=== PATIENT | female | born 1985 | race Caucasian/White ===

== ENCOUNTER → 2017-06-27 06:45 | Outpatient (CLI) | payer BC, SELFPAY ==
[2017-06-27 08:13] LABS: Absolute Neutrophil Count 5.8 X10^3/uL (2.0-7.7); Eosinophil# 0.08 X10^3/uL; Eosinophils% 1.1 % (0-5); Hematocrit 35.8 % (37-47); Hemoglobin 11.7 g/dl (12.0-15.0); Lymphocyte % 13.6 % (19-41); Mean Corp Hgb Conc 32.7 g/gl (32-36); Mean Corpuscular Hgb 31.3 pg (27.0-32.0); Mean Corpuscular Volume 95.7 fL (81-99); Mean Platelet Vol. 9.2 fl (6.2-12.0); Monocyte# 0.38 X10^3/uL; Monocyte% 5.2 % (0-10); Neutrophil # 5.84 X10^3/uL (2.7-7.7); Neutrophil % 79.7 % (47-70); Platelet Count 150 K/mm3 (150-450); RBC Distribution Width CV 14.5 % (11.6-14.6); Red Blood Count 3.74 M/mm3 (4.2-5.4); White Blood Count 7.3 K/mm3 (4.4-11.0)
[2017-06-27 08:20] LABS: POSITIVE COUNT NO; POSITIVE DIFFERENTIAL NO; POSITIVE MORPHOLOGY NO
[2017-06-27 08:39] LABS: Glucose Challenge Gest 1H 50g 169 mg/dL (70-140)
== END ==
PROVIDERS: Family Provider Family Medicine; PCP Family Medicine; Visit Provider Obstetrics & Gynecology
DX: Z34.82 Encounter for supervision of other normal pregnancy, second trimester (principal)
CPT/HCPCS: 36415; 82950; 85025

== ENCOUNTER → 2017-06-30 06:49 | Outpatient (CLI) | payer BC, SELFPAY ==
[2017-06-30 07:11] LABS: Bedside Glucose 91 mg/dL (70-110)
[2017-06-30 09:13] LABS: Glucose GTT-Gestation. Fasting 81 mg/dL (<105)
[2017-06-30 09:59] LABS: Glucose GTT-Gestational 1 Hr 153 mg/dL (<190)
[2017-06-30 10:00] LABS: Glucose GTT-Gestational 2 Hr 129 mg/dL (<165)
[2017-06-30 11:07] LABS: Glucose GTT-Gestational 3 Hr 88 L (<145)
== END ==
PROVIDERS: Family Provider Family Medicine; PCP Family Medicine; Visit Provider Obstetrics & Gynecology
DX: O99.810 Abnormal glucose complicating pregnancy (principal); Z3A.00 Weeks of gestation of pregnancy not specified
CPT/HCPCS: 82951; 82952; 82962

== ENCOUNTER → 2017-07-20 08:49 | Outpatient (CLI) | payer BC, SELFPAY ==
[2017-07-21 07:08] LABS: Rapid Plasmin Reagin (RPR) NONREACTIVE (NONREACTIVE)
[2017-07-21 15:02] LABS: HSV 2 IgG < 0.91 index (0.00-0.90); Hep C Antibodies <0.1 s/co ratio (0.0-0.9)
== END ==
PROVIDERS: Family Provider Family Medicine; PCP Family Medicine; Visit Provider Obstetrics & Gynecology
DX: Z34.90 Encounter for supervision of normal pregnancy, unspecified, unspecified trimester (principal)
CPT/HCPCS: 36415; 86592; 86695; 86696; 86803

== ENCOUNTER → 2017-08-24 17:55 | Outpatient (CLI) | payer BC, SELFPAY | PROVIDERS: Visit Provider Obstetrics & Gynecology | DX: L73.9 Follicular disorder, unspecified (principal) | CPT/HCPCS: 87070; 87075; 87077; 87186; 87205 ==

== ENCOUNTER → 2017-08-30 15:23 | Outpatient (CLI) | payer BC, SELFPAY ==
[2017-08-30 16:54] LABS: Group B Strep DNA By PCR Negative (Negative); Internal Control PASS; Probe Check PASS; Specimen Processing Control PASS
== END ==
PROVIDERS: Visit Provider Obstetrics & Gynecology
DX: Z34.82 Encounter for supervision of other normal pregnancy, second trimester (principal)
CPT/HCPCS: 87081; 87653

== ENCOUNTER → 2017-09-07 09:12 | Outpatient (CLI) | payer BC, SELFPAY ==
--- NOTE | 2017-09-07 09:16 | US_ITS ---
STUDY: SECOND AND THIRD TRIMESTER OBSTETRICAL ULTRASOUND - LIMITED REASON FOR EXAM: Female, 32 years old. Routine survey. LMP: December 21, 2016. PRIOR ULTRASOUND: Comparison is made with prior study dated May 03, 2017. TECHNIQUE: Transabdominal ultrasound evaluation was performed. FINDINGS: There is a single intrauterine fetus. The fetus is in a cephalic presentation. There is demonstrated cardiac activity with a heart rate of 129 bpm. There is a normal amniotic fluid volume. The largest amniotic fluid pocket measures 6.6 cm x 3.5 cm. The amniotic fluid index (ANGIE) is 12.4 cm. The placenta is fundal and anterior in location. There are Grade 2 placental changes. The cervix measures 3.9 cm in length. BIOMETRY: BPD: 9.0 cm: 36 weeks, 4 days HC: 32.46 cm: 36 weeks, 6 days AC: 33.75 cm: 37 weeks, 5 days FL: 7.12 cm: 36 weeks, 4 days Age by LMP: 37 weeks, 1 days. MICHELLE by LMP: September 28, 2017. age by prior US: 37 weeks, 3 days. MICHELLE by prior US: September 25, 2017. age by current US: 37 weeks, 0 days. MICHELLE by current US: September 28, 2017. Estimated weight: 3126 grams, +/- 456 grams, 57 percentile. Gender: Indeterminant US/OB Limited With Biometrics IMPRESSION: Single live intrauterine gestation with a mean gestational age of 37 weeks and 3 days. The measurements obtained today following the normal expected range. Electronically Signed: Juan Daniel Brantley MD at 10:47 EDT Tel [phone], Service support ,
== END ==
PROVIDERS: Family Provider Family Medicine; PCP Family Medicine; Visit Provider Obstetrics & Gynecology
DX: Z34.90 Encounter for supervision of normal pregnancy, unspecified, unspecified trimester (principal)
CPT/HCPCS: 76816

== ENCOUNTER 2017-09-24 04:25 | Inpatient (IN) | payer BC, SELFPAY ==
[2017-09-24 04:03] VITALS: BMI 28.6
[2017-09-24 04:25] LABS: ROM Internal Control Test YES-OK TO RESULT pt. (Internal QC)
[2017-09-24 04:26] LABS: ROM Patient Test POSITIVE (Negative)
[2017-09-24] MEDS: Lactated Ringers 1,000 ML 50 ML IV ×3 (04:40→09:52)
[2017-09-24 05:04] LABS: Hematocrit 36.6 % (37-47); Hemoglobin 12.2 g/dl (12.0-15.0); Mean Corp Hgb Conc 33.3 g/gl (32-36); Mean Corpuscular Hgb 31.2 pg (27.0-32.0); Mean Corpuscular Volume 93.6 fL (81-99); Mean Platelet Vol. 9.3 fl (6.2-12.0); Platelet Count 125 K/mm3 (150-450); RBC Distribution Width CV 14.7 % (11.6-14.6); RBC Distribution Width SD 48.4 fl (35.1-43.9); Red Blood Count 3.91 M/mm3 (4.2-5.4); Scan Indicated on CBC? Y/N NO; White Blood Count 9.5 K/mm3 (4.4-11.0)
[2017-09-24] MEDS: fentaNYL-bupivacaine (epidural) 100 ML BAG EPIDURAL (06:54)
--- NOTE | 2017-09-24 08:37 | PCM.HP.OB ---
History Date of Admission: 09/24/17 Final MICHELLE: 09/27/17 Final MICHELLE Source: US <20 weeks Gestational age: 39 Weeks and 4 Days History of this : 32-year-old 2 para 1 female presents at 39-4/7 weeks gestation with complaint of spontaneous rupture of membranes at approximately 12:30 AM. is uncomplicated to date. She has had some irregular contractions. No gross vaginal bleeding. Arrived to labor and delivery and was not found to be in active labor. Her cervix was unchanged from her office exam earlier in the week. However after some ambulation the patient made cervical change and I was called to be notified that the patient was in labor, desired epidural. I then arrived at the hospital patient as was getting her epidural. Previous obstetrical history: One previous full-term low transverse section after pushing for 2 hours. She was induced at an outside facility for this first . She understands that her calculated estimated TOLAC success rate is 60-70%. Allergies No Known Allergies Allergy (Verified 09/18/17 08:50) Current Medications Acetaminophen (Tylenol) 325 - 650 mg PO Q4H PRN PRN PRN Reason: PAIN OR FEVER >100.4F Al Hydroxide/Mg Hydroxide (Mylanta Ii) 15 - 30 ml PO Q4H PRN PRN PRN Reason: INDIGESTION Citric Acid/Sodium Citrate (Bicitra) 30 ml PO UD PRN Lactated Ringer's () 1,000 mls @ 50 mls/hr IV .Q20H ALISHA Last Admin: 09/24/17 05:42 Dose: 50 mls/hr Naloxone HCl 4 mg/ Dextrose 504 mls @ 0 mls/hr IV PRN PRN; Protocol PRN Reason: TO MAINTAIN RR>10 Nalbuphine HCl (Nubain) 5 - 10 mg IV Q3H PRN PRN PRN Reason: PAIN (4-10/10) Nalbuphine HCl (Nubain) 5 mg IV Q3H PRN PRN Reason: ITCHING Stop: 09/25/17 07:52 Naloxone HCl (Narcan) 0.2 mg IV Q1M PRN PRN Reason: RR<10 AND PT UNRESPONSIVE Stop: 09/25/17 07:52 Ondansetron HCl (Zofran) 4 mg IV Q8H PRN PRN PRN Reason: NAUSEA Promethazine HCl (Phenergan) 6.25 - 12.5 mg IV Q4H PRN PRN; Protocol PRN Reason: IF NAUSEA PERSISTS Sodium Chloride () 5 - 15 ml IV UD ALISHA Last Admin: 09/24/17 07:33 Dose: Not Given Smoking Status: Never smoker Alcohol: None Drug Use: none Number of Fetus(es): 1 Review of Systems Constitutional: Denies: Anorexia, Chills, Fever Cardiovascular: Denies: Chest Pain Respiratory: Denies: Cough Physical Exam General: Alert, Cooperative, No apparent distress Cardiovascular: Regular Rhythm Lungs: Normal air movement Abdomen: Soft, Non Tender, Non-Distended, Gravid, Appropriate for Gestational Age Extremities:: Other - trace edema Estimated gestational size: Appropriate for gestational size Presentation: Cephalic Cervix Dilation (cm): 7 Station: -1 Effacement (%): 90 Assessment/Plan 32-year-old 2 para 1 female at 39-4/7 weeks gestation in spontaneous labor. History of previous low transverse section and desires trial of labor. Benefits and alternatives to section versus trial of labor had been previously discussed in the office with patient's primary psychiatric assistant. I discussed with her today risk of uterine rupture and associated risks. I discussed with her that she can elect to have a section at any time. Estimated weight clinically is less than 4500 g and pelvis is clinically adequate to expect vaginal delivery. Patient has epidural for pain control. IUPC was placed. heart tones were category 1. [address] and augmentation if needed. Anesthesia is aware of patient, his alteration hand and backup psychiatric assistant.
--- NOTE | 2017-09-24 08:47 | HP.PCM_ITS ---
History Date of Admission: 09/24/17 Final MICHELLE: 09/27/17 Final MICHELLE Source: US <20 weeks Gestational age: 39 Weeks and 4 Days History of this : 32-year-old 2 para 1 female presents at 39-4/7 weeks gestation with complaint of spontaneous rupture of membranes at approximately 12:30 AM. is uncomplicated to date. She has had some irregular contractions. No gross vaginal bleeding. Arrived to labor and delivery and was not found to be in active labor. Her cervix was unchanged from her office exam earlier in the week. However after some ambulation the patient made cervical change and I was called to be notified that the patient was in labor, desired epidural. I then arrived at the hospital patient as was getting her epidural. Previous obstetrical history: One previous full-term low transverse section after pushing for 2 hours. She was induced at an outside facility for this first . She understands that her calculated estimated TOLAC success rate is 60-70%. Allergies No Known Allergies Allergy (Verified 09/18/17 08:50) Current Medications Acetaminophen (Tylenol) 325 - 650 mg PO Q4H PRN PRN PRN Reason: PAIN OR FEVER >100.4F Al Hydroxide/Mg Hydroxide (Mylanta Ii) 15 - 30 ml PO Q4H PRN PRN PRN Reason: INDIGESTION Citric Acid/Sodium Citrate (Bicitra) 30 ml PO UD PRN Lactated Ringer's () 1,000 mls @ 50 mls/hr IV .Q20H ALISHA Last Admin: 09/24/17 05:42 Dose: 50 mls/hr Naloxone HCl 4 mg/ Dextrose 504 mls @ 0 mls/hr IV PRN PRN; Protocol PRN Reason: TO MAINTAIN RR>10 Nalbuphine HCl (Nubain) 5 - 10 mg IV Q3H PRN PRN PRN Reason: PAIN (4-10/10) Nalbuphine HCl (Nubain) 5 mg IV Q3H PRN PRN Reason: ITCHING Stop: 09/25/17 07:52 Naloxone HCl (Narcan) 0.2 mg IV Q1M PRN PRN Reason: RR<10 AND PT UNRESPONSIVE Stop: 09/25/17 07:52 Ondansetron HCl (Zofran) 4 mg IV Q8H PRN PRN PRN Reason: NAUSEA Promethazine HCl (Phenergan) 6.25 - 12.5 mg IV Q4H PRN PRN; Protocol PRN Reason: IF NAUSEA PERSISTS Sodium Chloride () 5 - 15 ml IV UD ALISHA Last Admin: 09/24/17 07:33 Dose: Not Given Smoking Status: Never smoker Alcohol: None Drug Use: none Number of Fetus(es): 1 Review of Systems Constitutional: Denies: Anorexia, Chills, Fever Cardiovascular: Denies: Chest Pain Respiratory: Denies: Cough Physical Exam General: Alert, Cooperative, No apparent distress Cardiovascular: Regular Rhythm Lungs: Normal air movement Abdomen: Soft, Non Tender, Non-Distended, Gravid, Appropriate for Gestational Age Extremities:: Other - trace edema Estimated gestational size: Appropriate for gestational size Presentation: Cephalic Cervix Dilation (cm): 7 Station: -1 Effacement (%): 90 Assessment/Plan 32-year-old 2 para 1 female at 39-4/7 weeks gestation in spontaneous labor. History of previous low transverse section and desires trial of labor. Benefits and alternatives to section versus trial of labor had been previously discussed in the office with patient's primary visual training aide. I discussed with her today risk of uterine rupture and associated risks. I discussed with her that she can elect to have a section at any time. Estimated weight clinically is less than 4500 g and pelvis is clinically adequate to expect vaginal delivery. Patient has epidural for pain control. IUPC was placed. heart tones were category 1. [place] and augmentation if needed. Anesthesia is aware of patient, his supply chain procurement manager and backup visual training aide.
[2017-09-24] MEDS: Oxytocin 30 units/NS 500 ml 30 UNITS/500 ML IV.SOLN 334 UNITS IV (10:52)
[2017-09-24] MEDS: Methylergonovine 0.2 MG/ML Ampul IM (11:07)
[2017-09-24] MEDS: Oxytocin 30 units/NS 500 ml 30 UNITS/500 ML IV.SOLN 167 UNITS IV (11:18)
--- NOTE | 2017-09-24 11:33 | PCM.OB.VAG ---
Vaginal Delivery Maternal Presentation: Active Labor Amniotic Membrane Rupture Type: Spontaneous at home Amniotic Fluid Description: Clear Final MICHELLE: 09/27/17 Final MICHELLE Source: US <20 weeks Gestational age: 39 Weeks and 4 Days Date of Procedure: 09/24/17 Pre-Operative Diagnosis: recurrent prolonged declerations, labor Post-Operative Diagnosis: same Surgery/ Procedure Performed: Vacuum Assisted Vaginal Delivery - outlet Anesthesiologist: Natalie Reyes Type of Anesthesia: Epidural Description of Procedure: The patient was complete and pushing. She had several episodes of prolonged decelerations. During pushing she had another episode of prolonged decelerations. She was taken to the operating room for a double set up. When she arrived in the operating room heart tones were in the 90s-100s range. She was examined and found to be FILEMON and plus 4 out of 5 station. Pelvis is clinically adequate. Her epidural was working well and a Fonseca had been placed. At this point, I recommend expediting delivery and offered patient trial of vacuum-assisted vaginal delivery versus section. Patient desired trial of vacuum delivery. The vacuum was placed and suction created to 550 mmHg. I pulled with 1 contraction with some descent and the vacuum popped off. The vacuum was replaced and I pulled with another contraction to and the vacuum was removed. The patient then delivered the head with maternal pushing efforts only. Is a fairly tight nuchal cord but was able to be reduced carefully. The patient then delivered the posterior shoulder because the posterior arm was starting to expel. The anterior shoulder delivered easily in less than 15 seconds with minimal traction. The was placed on the maternal abdomen where he was attending to by the nursing staff. The infant was vigorous and after 1 minute the cord was clamped and cut. Cord gases were collected by the nursing staff. Sent to delivered spontaneously and intact. The uterus was explored and the uterine scar was intact. The cervix was intact. There is a left-sided vaginal vault laceration was approximately 4 cm long. This was repaired with 3-0 Vicryl suture in a running locked fashion. Excellent hemostasis was noted. Sponge and needle counts were correct. A vaginal sweep was performed by me. Presentation: FILEMON Placental Delivery Description: Spontaneous Placenta Disposition: [facility] Cord Vessel Description: 3 Vessels Nuchal Cord Compression: Without compression Cord Entanglement: Around neck x 1, tight Drain: Fonseca to straight drain Estimated Blood Loss: 400 Infant A gender: Male (1 minute): 8 (5 minute): 9 Episiotomy Description: None Laceration: Vaginal Extension/lac - second degree- left side Medications given after delivery: IV Pitocin, IM Methergin - x1 to prevent atony Complications: None
[2017-09-24] MEDS: Ondansetron 4 MG/2 ML Vial IV (11:58)
[2017-09-24] MEDS: Naproxen 250 MG Tablet PO (13:47)
[2017-09-24 14:00] VITALS: BP 116/70; PULSE 90; RESP 16; TEMP 36.4
--- NOTE | 2017-09-24 14:38 | NURSING ---
Dr Hightower notified of pt swollen with greater to the pt right side labia to anus and that urine remains blood tinged. Ok to leave catheter in at this time. Otherwise reported that pt is doing well.
[2017-09-24 16:35] VITALS: BP 115/68; PULSE 90; RESP 18; TEMP 36.2
[2017-09-24] MEDS: oxyCODONE 5 MG Tablet PO (19:26)
[2017-09-24 19:29] VITALS: BP 115/66; PULSE 88; RESP 18; TEMP 36.2
--- NOTE | 2017-09-24 19:37 | NURSING ---
When rounding with Antonieta rn off nurse viewed perinium to show swelling. it remains swollen, although not as swollen post delivery. tomas was emptied for 600cc blood tinged urine. the urine that settled in the tubing following it being emptied did appear to be more yellow with tinge of pink to it. on coming nurse to monitor and report any needs to physician.
[2017-09-24 23:25] VITALS: BP 102/56; PULSE 85; RESP 16; TEMP 36.2
[2017-09-25] MEDS: Naproxen 250 MG Tablet PO ×2 (03:39→13:32)
[2017-09-25 03:45] VITALS: BP 102/58; PULSE 81; RESP 18; TEMP 35.9
[2017-09-25] MEDS: Acetaminophen 500 MG Tablet 1000 MG PO (08:23)
[2017-09-25 08:24] VITALS: BP 113/56; PULSE 93; RESP 16; TEMP 36.2; O2SAT 99
--- NOTE | 2017-09-25 08:52 | DCINST_ITS ---
Discharge Diet: No Restrictions Discharge Activity: Return to Normal Activity, May not drive while taking narcotic pain medications., May Shower May resume sexual activity in: 4-6 weeks Weight Bearing Status: Weight bearing as tolerated Call your doctor if your incision/area has: Continuous Slow Oozing, Sudden Increased Bleeding, Increased Pain/ Swelling, Increased Redness, Foul Smelling Discharge Call your doctor if you observe: Fever of 101 or Higher, Coldness, Increased Pain, Numbness or Tingling, Change in Color, Inability to urinate, Inability to have a bowel movement, Using more than one pad per hour, Shortness of breath, Dizziness, Fainting spells, Swelling in the ankles, Chest pain, Prolonged hiccoughing, Increased palpitations (irregular heartbeat), Calf discomfort, Uncontrolled pain Additional Instructions: If you experience any of the following, contact your healthcare provider. * Bleeding that soaks a pad every hour for 2 hours * Fever 100.4 or higher * Unrelieved incision or abdominal pain * Swelling, redness, discharge or bleeding from your incision or episiotomy site * Your incision begins to separate * Problems urinating (including inability to urinate or burning while urinating) . * Visual changes * Severe headache * Flu-like symptoms * Pain or redness in one of both of your breasts * Pain, warmth, tenderness or swelling in your legs, especially the calf area * Frequent nausea and vomiting * Symptoms of depression or anxiety If you experience any of the following, call 911 or go to the nearest Emergency Room. * Chest pain * Problems breathing * Seizure activity * Partial or complete paralysis of a body part, slurred speech, weakness or drooping of the face, or a sudden inability to walk or hold your balance Allergies/Adverse Reactions: Allergies No Known Allergies Allergy (Verified 09/18/17 08:50) Medications to take at Discharge vitamins-iron fumarate 27 mg iron-folic acid 0.8 mg tablet 1 tab PO QDAY 05/09/17 Please Follow Up With: Mendy Hightower MD Primary Care Physician: Eneida Pat DO [Primary Care Provider] -
--- NOTE | 2017-09-25 08:52 | PCM.PN.OB ---
Subjective: Doing well per patient and nursing staff. Ambulating and taking PO without difficulty. Voiding and passing flatus. Happy with having , feeling well. Pain controlled with Motrin and Tylenol. Denies headache, visual changes, chest pain, SOB, leg pain, increased vaginal bleeding or clots. Planning D/C home tomorrow. - Physical Exam General: Alert, Oriented x3, Cooperative Lungs: Clear to auscultation, Normal air movement, No rhonchi, No wheeze Cardiovascular: Regular rate, No murmurs Abdomen: Bowel Sounds Present, Soft, Non Tender Extremities: No edema Psych/Mental Status: Normal Affect, Appropriate Vital Signs Temp Pulse Resp BP Pulse Ox 97.2 F L 93 16 113/56 L 99 09/25/17 08:24 09/25/17 08:24 09/25/17 08:24 09/25/17 08:24 09/25/17 08:24 Oxygen Delivery Method Room Air Weight: 172 lb 3.2 oz Body Mass Index (BMI) 28.6 Intake and Output for Last 24 Hours 09/23/17 09/24/17 09/25/17 23:59 23:59 23:59 Intake Total 2658 / 2658 Output Total 2650 / 2650 400 / 400 Balance / -400 / -400 Medical Necessity - Tobacco Use Smoking Status: Never smoker Assessment/Plan A: PPD#1 Breastfeed P: 1) Planning D/C home tomorrow 2) Routine care
[2017-09-25 12:00] VITALS: BP 106/57; PULSE 99; RESP 16; TEMP 36.1; O2SAT 98
[2017-09-25 22:39] VITALS: BP 107/66; PULSE 90; RESP 16; TEMP 36.1
[2017-09-26 02:30] VITALS: BP 97/56; PULSE 82; RESP 16; TEMP 36
[2017-09-26 06:00] VITALS: BP 146/69; PULSE 110; RESP 16; TEMP 36.4; O2SAT 99
--- NOTE | 2017-09-26 08:38 | PCM.PN.OB ---
Subjective: pain well controlled, average lochia, no N/V. +Flatus, no BM. Urinating w/o difficulty. - Physical Exam General: Alert, Cooperative, No apparent distress Abdomen: Soft, Tender - appropriately, - - fundus firm at 1u Comment: vulva w/ some slight swelling, no signif. induration Vital Signs Temp Pulse Resp BP Pulse Ox 96.8 F L 82 16 97/56 L 98 09/26/17 02:30 09/26/17 02:30 09/26/17 02:30 09/26/17 02:30 09/25/17 12:00 Oxygen Delivery Method Room Air Weight: 78.109 kg Body Mass Index (BMI) 28.6 Intake and Output for Last 24 Hours 09/24/17 09/25/17 09/26/17 23:59 23:59 23:59 Intake Total 2658 / 2658 Output Total 2650 / 2650 600 / 600 Balance 8 / 8 -600 / -600 Medical Necessity - Tobacco Use Smoking Status: Never smoker Assessment/Plan PPD#2 s/p vacuum assisted vaginal delivery /successful TOLAC doing well ready for d/c and doing well
--- NOTE | 2017-09-26 08:44 | DCINST_ITS ---
Discharge Diet: No Restrictions Discharge Activity: Return to Normal Activity, May not drive while taking narcotic pain medications., May Shower May resume sexual activity in: 4-6 weeks Weight Bearing Status: Weight bearing as tolerated Additional Activity Instructions:: Nothing in the vagina for 4-6 weeks. You may return to work/school in 6 weeks. Call your doctor if your incision/area has: Continuous Slow Oozing, Sudden Increased Bleeding, Increased Pain/ Swelling, Increased Redness, Foul Smelling Discharge Call your doctor if you observe: Fever of 101 or Higher, Coldness, Increased Pain, Numbness or Tingling, Change in Color, Inability to urinate, Inability to have a bowel movement, Using more than one pad per hour, Shortness of breath, Dizziness, Fainting spells, Swelling in the ankles, Chest pain, Prolonged hiccoughing, Increased palpitations (irregular heartbeat), Calf discomfort, Uncontrolled pain Additional Instructions: If you experience any of the following, contact your healthcare provider. * Bleeding that soaks a pad every hour for 2 hours * Fever 100.4 or higher * Unrelieved incision or abdominal pain * Swelling, redness, discharge or bleeding from your incision or episiotomy site * Your incision begins to separate * Problems urinating (including inability to urinate or burning while urinating) . * Visual changes * Severe headache * Flu-like symptoms * Pain or redness in one of both of your breasts * Pain, warmth, tenderness or swelling in your legs, especially the calf area * Frequent nausea and vomiting * Symptoms of depression or anxiety If you experience any of the following, call 911 or go to the nearest Emergency Room. * Chest pain * Problems breathing * Seizure activity * Partial or complete paralysis of a body part, slurred speech, weakness or drooping of the face, or a sudden inability to walk or hold your balance Allergies/Adverse Reactions: Allergies No Known Allergies Allergy (Verified 09/18/17 08:50) Medications to take at Discharge vitamins-iron fumarate 27 mg iron-folic acid 0.8 mg tablet 1 tab PO QDAY 05/09/17 Ibuprofen [Motrin] 600 mg PO Q6H PRN #60 tab 09/26/17 The following prescriptions were given: Ibuprofen [Motrin] 600 mg PO Q6H PRN #60 tab PRN Reason: Pain Orders to be completed after discharge: Electric breast pump Location: None Selected Please Follow Up With: Toña Lou MD When: Call to make an appointment with your doctor in 6 weeks. If you had elevated Blood Pressure or 4th degree laceration you will need to be seen in 2 weeks. Primary Care Physician: Eneida Pat DO [Primary Care Provider] -
== END 2017-09-26 10:00 | disposition home or self-care (01) | DRG 775 ==
LOC: WPOUT 04:33
PROVIDERS: Admitting Provider Obstetrics & Gynecology; Family Provider Family Medicine; PCP Family Medicine; Visit Provider Obstetrics & Gynecology
DX: O76 Abnormality in fetal heart rate and rhythm complicating labor and delivery (principal); O71.4 Obstetric high vaginal laceration alone; Z3A.39 39 weeks gestation of pregnancy; Z37.0 Single live birth; O69.1XX0 Labor and delivery complicated by cord around neck, with compression, not applicable or unspecified; O34.211 Maternal care for low transverse scar from previous cesarean delivery; N85.8 Other specified noninflammatory disorders of uterus
CPT/HCPCS: 59025; 59050; 84112; 85027; 86850; 86900; 99218; J7120; G0378; J2405

== ENCOUNTER → 2017-11-07 15:22 | Outpatient (CLI) | payer BC, SELFPAY ==
[2017-11-15 09:53] LABS: HPV APTIMA, High Risk Negative (Negative)
== END ==
PROVIDERS: Visit Provider Obstetrics & Gynecology
DX: Z12.4 Encounter for screening for malignant neoplasm of cervix (principal)
CPT/HCPCS: 88175; G0145

== ENCOUNTER → 2018-01-02 15:01 | Outpatient (CLI) | payer BC, SELFPAY | PROVIDERS: Visit Provider Nurse Practitioner Women's Health | DX: N76.0 Acute vaginitis (principal) | CPT/HCPCS: 87070; 87205 ==

== ENCOUNTER → 2019-04-23 14:00 | Outpatient (CLI) | payer BC, SELFPAY ==
[2019-01-04 14:12] VITALS: BMI 26.4
--- NOTE | 2019-04-23 14:03 | RAD_ITS ---
STUDY: X-RAY - LEFT TIBIA AND FIBULA REASON FOR EXAM: Female, 34 years old. Ran a marathon, then had pain x1 month TECHNIQUE: 2 view(s) of the tibia and fibula were obtained. COMPARISON: None. FINDINGS: Normal visualized tibia. Normal visualized fibula. The soft tissue structures are unremarkable. RAD/Tibia & Fibula 2 Views IMPRESSION: Normal x-ray examination of the tibia and fibula. No stress injury detected. Electronically Signed: Naya Gambino MD at 6:59 EST , Service support ,
== END ==
PROVIDERS: Family Provider Family Medicine; PCP Family Medicine; Referring Provider Family Medicine; Visit Provider Family Medicine
DX: M79.662 Pain in left lower leg (principal)
CPT/HCPCS: 73590

== ENCOUNTER 2019-09-16 12:01 | Emergency (ER) | payer BC, SELFPAY ==
[2019-08-14 15:57] VITALS: BMI 26.4
[2019-09-16 12:02] VITALS: BP 135/83; PULSE 71; RESP 17; TEMP 36.8; O2SAT 99; BMI 24.5
--- NOTE | 2019-09-16 12:04 | NURSING ---
NO OLD EKGS
--- NOTE | 2019-09-16 12:23 | EKG12_ITS ---
Test Reason : CP Blood Pressure : / mmHG Vent. Rate : 052 BPM Atrial Rate : 052 BPM P-R Int : 126 ms QRS Dur : 076 ms QT Int : 426 ms P-R-T Axes : 059 052 040 degrees QTc Int : 396 ms Sinus bradycardia Otherwise normal ECG Confirmed by REBECCA ROSENBERG, LETY ([id number]), newspaper photo editor CHERYL GORDON ([id number]) on 09/18/2019 9:35:07 AM Referred By: DANAE/LEISA Confirmed By:LETY FERNANDEZ MD
[2019-09-16 12:27] VITALS: BP 128/87; PULSE 51; RESP 19; O2SAT 98
--- NOTE | 2019-09-16 12:35 | RAD_ITS ---
STUDY: X-RAY CHEST REASON FOR EXAM: Female, 34 years old. CHEST DISCOMFORT X2 WEEKS TECHNIQUE: Single AP portable view of the chest. COMPARISON: None. FINDINGS: EKG electrodes are seen. The lungs are clear and expanded. There is no demonstrated pleural abnormality. Normal size heart. Normal mediastinum and griselda. Normal visualized pulmonary arteries. Normal visualized aortic arch and descending thoracic aorta. Normal visualized thoracic spine. Normal visualized ribs, clavicles, and shoulders. There is no demonstrated abnormality of the visualized soft tissue structures of the upper abdomen. RAD/Chest 1 View (Portable) IMPRESSION: Normal x-ray examination of the chest. Electronically Signed: Juan Daniel Brantley, at 13:06 EDT , Service support ,
[2019-09-16 12:38] LABS: Absolute Lymphocyte Count 1.75 X10^3/uL (0.83-4.51); Absolute Neutrophil Count 3.2 X10^3/uL (2.0-7.7); Basophil# 0.02 X10^3/uL; Basophil% 0.4 % (0-1); Eosinophil# 0.08 X10^3/uL; Eosinophils% 1.5 % (0-5); Hematocrit 42.7 % (37-47); Hemoglobin 13.8 g/dL (12.0-15.0); Lymphocyte # 1.75 X10^3/ul (4.0); Lymphocyte % 32.3 % (19-41); Mean Corp Hgb Conc 32.3 g/dL (32-36); Mean Corpuscular Hgb 29.2 pg (27.0-32.0); Mean Corpuscular Volume 90.3 fL (81-99); Mean Platelet Vol. 9.5 fl (6.2-12.0); Monocyte# 0.35 X10^3/uL; Monocyte% 6.5 % (0-10); NRBC Flagged by Analyzer 0 % (0-5); Neutrophil % 59.1 % (47-70); Platelet Count 196 K/mm3 (150-450); RBC Distribution Width CV 12.4 % (11.6-14.6); Red Blood Count 4.73 M/mm3 (4.2-5.4); White Blood Count 5.4 K/mm3 (4.4-11.0)
[2019-09-16 12:48] LABS: D-Dimer Quantitative (DVT/PE) 0.38 FEU/ug/m (0.27-0.49)
[2019-09-16 12:49] LABS: Anion Gap 4 (5-15); BUN 12 mg/dL (7-18); BUN/Creat Ratio 14.1 RATIO (10-20); Calcium,Total 9.4 mg/dL (8.5-10.1); Chloride 106 mmol/L (98-107); Creatinine, Serum 0.85 mg/dL (0.55-1.02); EST Glomerular Filtration Rate 81 mL/min (>60); Est Glom Filt Rate - Afr Amer 99 mL/min (>60); Estimated Creatinine Clearance 84.71 ml/min; Glucose 99 mg/dL (74-106); Potassium 3.9 mmol/L (3.5-5.1); Sodium Level 139 mmol/L (136-145)
--- NOTE | 2019-09-16 12:50 | ED.VIS.GEN ---
History of Present Illness Chief Complaint: Chest Pain Informant: Patient Narrative: Patient presents with chest pain that is been ongoing for 2 weeks but it has been intermittent. It is not exertional in fact she has been able to exercise during this episode she tells me she still runs 20 to 30 miles a week. She denies calf pain, there is a slight pleuritic component at times. She has no back pain or tearing sensation. She has no cough or congestion or upper respiratory symptoms. No fever or chills. Past Medical History - Allergies and Home Meds Allergies/Adverse Reactions: Allergies No Known Allergies Allergy (Verified 09/16/19 12:02) Primary Care Physician: Eneida Pat [Primary Care Provider] - Past Medical History: None Smoking Status: Never smoker Review of Systems General: Denies: Fever Eyes: Denies: Visual changes - bilaterally ENT: Denies: Rhinorrhea, Sore throat Cardiovascular: Reports: Chest pain. Denies: Palpitations, Heart racing Respiratory: Denies: Dyspnea, Cough, Sputum Gastrointestinal: Denies: Abdominal pain, Nausea Genitourinary: Denies: Dysuria Musculoskeletal: Denies: Myalgias, Arthralgias, Neck pain Skin: Denies: Rash Neurological: Denies: Headache, Weakness Endocrine: Denies: Polyuria, Polydipsia Physical Exam Vital Signs/Narrative: Vital Signs Temp Pulse Resp BP Pulse Ox 09/16/19 12:27 51 L 19 H 128/87 H 98 09/16/19 12:02 98.2 F 71 17 135/83 H 99 General: Well nourished, Well developed, No Acute Distress Head: Normocephalic Eyes: Perrl, EOMI ENT: Moist mucous membranes, No rhinorrhea Neck: Supple Cardiovascular: Regular rate, Regular rhythm, No murmurs Respiratory: No distress, CTA bilaterally Abdomen: Soft, Nontender Back: Nontender, Normal Inspection Extremities: Nontender, No edema Skin: Normal color Neurological: Alert, Oriented x3, Normal Sensation Psychological: Normal affect Diagnostic/Tx/Re-eval - Rhythm Strip Rhythm Strip: Sinus Rhythm Rate: 52 Ectopy: None - EKG Initial EKG Interpretation: - - Normal sinus rhythm with a rate of 52 normal MA and QTc intervals. No ischemic changes seen. Otherwise normal EKG Interpreted by emergency doctor - Medical Decision Making Patient has a normal emergency department work-up. I will refer her to cardiology for an echocardiogram I told her to stop running or any strenuous exercise until then, otherwise I will discharge her in stable condition if her symptoms change at all she is to come back to the emergency department ED Disposition - Plan for ED Patient: Disposition: Home or Assisted Living Diagnosis: Chest pain Instructions: ED Chest Pain Atypical Unkn Cause Referrals: Shay Martinez MD [STAFF PHYSICIAN] - 3-5 Days
[2019-09-16 13:02] VITALS: BP 107/71; PULSE 61; RESP 17; O2SAT 98
== END 2019-09-16 13:32 | disposition home or self-care (01) ==
PROVIDERS: Emergency Provider Emergency Medicine; PCP Family Medicine
DX: R07.9 Chest pain, unspecified (principal); Z79.899 Other long term (current) drug therapy
CPT/HCPCS: 71045; 80048; 84484; 85025; 85379; 93005; 99284; A4216

== ENCOUNTER → 2019-10-28 09:51 | Outpatient (CLI) | payer BC, SELFPAY ==
[2019-10-09 15:56] VITALS: BMI 25.0
--- NOTE | 2019-10-28 09:54 | ECHOD_ITS ---
Reason For Study: CHEST PAIN Procedure This was a 2D Doppler, Color Flow transthoracic echocardiogram. Exam performed in department. Left Ventricle Normal LV size. Left ventricular systolic function is normal. The estimated ejection fraction is 55 %. No regional wall motion abnormalities noted. Right Ventricle Normal RV size. Normal systolic function. Atria Normal left atrium. Normal right atrium. Mitral Valve Normal mitral valve. Mild (1+) eccentric mitral valve insufficiency. Tricuspid Valve Normal tricuspid valve. Mild tricuspid valve insufficiency. Aortic Valve Normal aortic valve. Trisinus/trileaflet aortic valve. Pulmonic Valve Normal pulmonic valve. Great Vessels Normal aortic root. The pulmonary artery is normal size. Normal inferior vena cava. Pericardium/Pleural No pericardial effusion. MMode/2D Measurements & Calculations LVIDd: 5.1 cm IVSd: 0.83 cm Ao root diam: 2.7 cm LVIDs: 3.3 cm LVPWd: 0.76 cm RVDd: 3.1 cm FS: 35.7 % LAV(MOD-bp): 45.1 ml LA A4 area: 16.4 cm2 LA dimension(2D): 3.6 cm LAV(MOD-bp) Indexed: 26.1 ml/m2 LAV(MOD-sp2): 45.2 ml LAV(MOD-sp4): 44.3 ml RA A4 area: 13.5 cm2 Time Measurements MV dec time: 0.29 sec Doppler Measurements & Calculations MV E max moise: 91.4 cm/sec Lat Peak E' Moise: 18.5 cm/sec Med Peak E' Moise: 11.4 cm/sec MV A max moise: 42.7 cm/sec E/E' lat: 4.9 E/E' med: 8.0 MV E/A: 2.1 Ao V2 max: 159.7 cm/sec LV V1 max: 110.1 cm/sec PA V2 max: 106.8 cm/sec Ao max P.2 mmHg LV V1 max P.9 mmHg TR max moise: 241.4 cm/sec TR max P.3 mmHg Interpretation Summary Normal LV size. Left ventricular systolic function is normal. The estimated ejection fraction is 55 %. Mild tricuspid valve insufficiency. Ordering Physician: Shay Martinez Referring Physician: SABINA KENT Performed By: Jennifer Domingo, ISELA, RVT
== END ==
PROVIDERS: PCP Family Medicine; Referring Provider Internal Medicine Cardiovascular Disease; Visit Provider Internal Medicine Cardiovascular Disease
DX: R07.9 Chest pain, unspecified (principal); R55 Syncope and collapse
CPT/HCPCS: 93306

== ENCOUNTER → 2020-05-07 10:49 | Outpatient (CLI) | payer BC, SELFPAY ==
[2019-11-12 09:16] VITALS: BMI 24.5
--- NOTE | 2020-05-07 11:02 | RAD_ITS ---
STUDY: X-RAY CHEST REASON FOR EXAM: Female, 35 years old. DYSPNEA, HX OF COVID- PT IS 12 DAYS POST COVID SYMPTOMS STARTING TECHNIQUE: PA and lateral views of the chest. COMPARISON: Comparison is made with prior study dated 09/16/2019. FINDINGS: The lungs are clear and expanded. There is no demonstrated pleural abnormality. Normal size heart. Normal mediastinum and griselda. Normal visualized pulmonary arteries. Normal visualized aortic arch and descending thoracic aorta. Normal visualized thoracic spine. Normal visualized ribs, clavicles, and shoulders. There is no demonstrated abnormality of the visualized soft tissue structures of the upper abdomen. RAD/Chest PA and Lateral IMPRESSION: Normal x-ray examination of the chest. Electronically Signed: Juan Daniel Brantley, at 11:15 EST , Service support ,
== END ==
PROVIDERS: PCP Family Medicine; Referring Provider Family Medicine; Visit Provider Family Medicine
DX: U07.1 COVID-19 (principal); R06.00 Dyspnea, unspecified
CPT/HCPCS: 71046

== ENCOUNTER 2020-05-10 14:56 | Emergency (ER) | payer BC, SELFPAY ==
[2019-11-12 09:16] VITALS: BMI 24.5
[2020-05-10] VITALS (7 sets, daily range): BP systolic 104–125; BP diastolic 64–78; PULSE 52–97; RESP 18–21; TEMP 36.6; O2SAT 97–100; BMI 25.9
--- NOTE | 2020-05-10 15:05 | EKG12_ITS ---
Test Reason : SOB Blood Pressure : / mmHG Vent. Rate : 061 BPM Atrial Rate : 061 BPM P-R Int : 128 ms QRS Dur : 084 ms QT Int : 410 ms P-R-T Axes : 051 050 046 degrees QTc Int : 412 ms Normal sinus rhythm with sinus arrhythmia Normal ECG Confirmed by REBECCA ROSENBERG, LETY ([id number]), content editor MOOSE NEGRON ([id number]) on 05/13/2020 9:36:37 AM Referred By: LULA Confirmed By:LETY FERNANDEZ MD
--- NOTE | 2020-05-10 15:05 | ED.VIS.GEN ---
History of Present Illness Chief Complaint: Shortness of Breath Informant: Patient Limited by: Coma Narrative: 35-year-old female presenting with left-sided rib pain. She states she started having cold-like symptoms on 23 April. She was tested positive for Covid?19 on the second. This would make it 17-day since symptom onset. He never had loss of taste or smell or fever. She states she had myalgias. She states she was feeling better but now presents with left-sided rib pain. She has no trauma. She had an x-ray on the second of her chest which was negative. She is feeling shortness of breath as an associated symptom. She has no cardiac history. No DVT/PE history. Patient does states he has a history of anxiety and had to use Ativan for the first time yesterday due to her increasing anxiety. Prior similar symptoms: Yes Recent Illness/Hospitalization: No Past Medical History - Allergies and Home Meds Allergies/Adverse Reactions: Allergies No Known Allergies Allergy (Verified 05/10/20 15:03) Primary Care Physician: Eneida Pat [Primary Care Provider] - Prior records reviewed: Yes Past Medical History: - - Anxiety Lives: Spouse/ Significant Other Smoking Status: Never smoker Alcohol: None Drugs: None Review of Systems General: Denies: Chills, Fever, Sweats Eyes: Denies: Visual changes - bilaterally, Diplopia ENT: Denies: Rhinorrhea, Sore throat Cardiovascular: Reports: Chest pain, Palpitations, Heart racing Respiratory: Reports: Dyspnea, Dyspnea on exertion, Paroxysmal nocturnal dyspnea. Denies: Cough, Sputum Gastrointestinal: Denies: Abdominal pain, Nausea, Vomiting Genitourinary: Denies: Dysuria, Hematuria Musculoskeletal: Denies: Myalgias, Arthralgias Skin: Denies: Rash, Abscess Neurological: Reports: Headache. Denies: Parasthesia, Numbness Psych: Reports: Anxiety. Denies: Suicidal thoughts, Suicidal ideations Physical Exam Vital Signs/Narrative: Vital Signs Temp Pulse Resp BP Pulse Ox 05/10/20 14:58 98 F 97 21 H 125/71 H 100 Inital Vital Signs reviewed: Yes General: Well nourished, No Acute Distress Head: Normocephalic, Atraumatic Eyes: Perrl, EOMI ENT: Moist mucous membranes, No rhinorrhea Cardiovascular: Regular rate, Regular rhythm, No murmurs Respiratory: No distress, CTA bilaterally, Chest tenderness - Left upper ribs are tender to palpation in the mid axillary line. No crepitus, deformity or bruising Abdomen: Soft, Nontender Extremities: Nontender, No edema Skin: Normal color, No rash. Negative for: Cyanosis, Diaphoresis Neurological: Alert, Oriented x3, Cranial nerves II-XII grossly intact Psychological: Tearful, - - Anxious Diagnostic/Tx/Re-eval - Rhythm Strip Rhythm Strip: Sinus Tach Rate: 61 - EKG Initial EKG Interpretation: Sinus Rhythm, No Acute Injury Pattern - Medical Decision Making 35-year-old female presenting with left-sided rib pain. This is tender to palpation. She states she just recovered from Covid?19 and had been feeling well until the chest pain started. Initial EKG interpreted by myself shows a sinus rhythm at 61 bpm. Chest x-ray is negative for acute process as interpreted by myself and the radiologist. Lab work-up is unremarkable with exception of a potassium of 3.2 which was replaced orally with 40 mEq of potassium chloride. Magnesium is normal. Renal function is normal. Initial troponin is negative and a D-dimer is also negative. Patient's heart score is 0, but given her chest pain starting today I will obtain delta troponin and EKG. given that she is already had Covid?19 I do not believe she needs another test. Delta EKG is sinus bradycardia 52 bpm and no ischemic changes interpreted by myself. No significant change from previous EKG. Delta troponin was negative. Patient felt better after receiving Toradol. I will send her home with Naprosyn. Impression: 1. Atypical chest pain 2. Left rib pain 3. Hypokalemia 4. Dyspnea ED Disposition - Plan for ED Patient: Disposition: Home or Assisted Living Instructions: ED Chest Pain, Noncardiac Prescriptions: Naproxen [Naprosyn] 500 mg PO BID PRN #30 tab Transmission Status: Received by [facility] Referrals: Eneida Pat [Primary Care Provider] -
[2020-05-10] MEDS: Aspirin 81 MG TAB.CHEW 324 MG PO (15:14)
--- NOTE | 2020-05-10 15:25 | RAD_ITS ---
STUDY: X-RAY CHEST REASON FOR EXAM: Female, 35 years old. DX COVID /, INCREASED SOB AND CHEST PAIN TODAY. PAIN TO LEFT BACK, LIGHTHEADED, AND WEAKNESS TECHNIQUE: Single view of the chest was obtained COMPARISON: 05/07/2020 FINDINGS: No consolidative process, pleural effusion or pneumothorax. Cardiac size within normal limits. Osseous structures demonstrate no acute abnormalities. IMPRESSION: No acute cardiopulmonary pathology. Stable chest radiograph Electronically Signed: Josh Lynn, at 15:59 EST Tel , Service support , RAD/Chest 1 View (Portable)
[2020-05-10 15:26] LABS: Absolute Lymphocyte Count 2.27 X10^3/uL (0.83-4.51); Absolute Neutrophil Count 4.2 X10^3/uL (2.0-7.7); Basophil# 0.02 X10^3/uL; Basophil% 0.3 % (0-1); Eosinophil# 0.07 X10^3/uL; Hematocrit 43.4 % (37-47); Lymphocyte # 2.27 X10^3/ul (4.0); Lymphocyte % 32.7 % (19-41); Mean Corp Hgb Conc 34.6 g/dL (32-36); Mean Corpuscular Hgb 30.5 pg (27.0-32.0); Mean Corpuscular Volume 88.2 fL (81-99); Mean Platelet Vol. 9.6 fl (6.2-12.0); Monocyte# 0.37 X10^3/uL; Monocyte% 5.3 % (0-10); NRBC Flagged by Analyzer 0 % (0-5); Neutrophil % 60.4 % (47-70); Platelet Count 287 K/mm3 (150-450); RBC Distribution Width SD 38.6 fl (35.1-43.9); Red Blood Count 4.92 M/mm3 (4.2-5.4)
[2020-05-10 15:32] LABS: D-Dimer Quantitative (DVT/PE) <= 0.27 FEU/ug/m (0.27-0.49)
[2020-05-10 15:35] LABS: Anion Gap 11 (5-15); BUN 10 mg/dL (7-18); BUN/Creat Ratio 10.2 RATIO (10-20); Calcium,Total 9.2 mg/dL (8.5-10.1); Chloride 104 mmol/L (98-107); Creatinine, Serum 0.98 mg/dL (0.55-1.02); EST Glomerular Filtration Rate 69 mL/min (>60); Est Glom Filt Rate - Afr Amer 84 mL/min (>60); Estimated Creatinine Clearance 72.78 ml/min; Glucose 115 mg/dL (74-106); Potassium 3.2 mmol/L (3.5-5.1); Sodium Level 137 mmol/L (136-145)
[2020-05-10 16:00] LABS: Magnesium 2.1 mg/dL (1.6-2.6)
[2020-05-10] MEDS: Ketorolac 15 MG/ML Vial IV (16:13)
--- NOTE | 2020-05-10 18:00 | EKG12_ITS ---
Test Reason : 3 HOUR REPEAT Blood Pressure : / mmHG Vent. Rate : 052 BPM Atrial Rate : 052 BPM P-R Int : 120 ms QRS Dur : 082 ms QT Int : 442 ms P-R-T Axes : 051 039 041 degrees QTc Int : 411 ms Sinus bradycardia Otherwise normal ECG Confirmed by REBECCA ROSENBERG, LETY ([id number]), deputy editor in chief MOOSE NEGRON ([id number]) on 05/13/2020 9:36:50 AM Referred By: LULA Confirmed By:LETY FERNANDEZ MD
== END 2020-05-10 19:01 | disposition home or self-care (01) ==
PROVIDERS: Emergency Provider Student in an Organized Health Care Education/Training Program; PCP Family Medicine
DX: R07.89 Other chest pain (principal); R06.00 Dyspnea, unspecified; E87.6 Hypokalemia; F41.9 Anxiety disorder, unspecified; Z79.899 Other long term (current) drug therapy; Z86.19 Personal history of other infectious and parasitic diseases
CPT/HCPCS: 71045; 80048; 83735; 84484; 85025; 85379; 93005; 96361; 96374; 99285; J7030; A4216

== ENCOUNTER → 2020-06-08 14:34 | Outpatient (CLI) | payer BC, SELFPAY ==
--- NOTE | 2020-06-08 14:36 | BI_ITS ---
MAMMOGRAPHY - BILATERAL DIAGNOSTIC REASON FOR EXAM: Female, 35 years old. 3 week history of right breast pain. PERTINENT HISTORY: Non-contributory. TECHNIQUE: Digital bilateral breast andres (3D mammographic acquisition) in the CC and MLO projections. 2-D mediolateral oblique (MLO) and craniocaudad (CC) views of both breasts were obtained. CAD: Full Field Digital Mammography with Computer Added Detection was performed. COMPARISON: None. Baseline examination. FINDINGS: Breast Composition: The breasts are heterogeneously dense, which may obscure small masses. There are no dominant masses or suspicious calcifications. No other significant abnormalities are identified. BI/DIAG MAMM W/CAD, BILAT IMPRESSION: Negative diagnostic mammogram. With the patient''s history of right breast pain, correlation with ultrasound is recommended. ASSESSMENT CATEGORY: BIRADS Category 0: Incomplete. Need additional imaging evaluation. A letter regarding these results will be sent to the patient by the facility within 30 days. Approximately 10% of breast cancers are not detected by mammography. A normal mammogram should not delay biopsy of a clinically suspicious abnormality. Electronically Signed: Juan Daniel Brantley, at 15:34 EST , Service support ,
--- NOTE | 2020-06-08 14:36 | US_ITS ---
STUDY: ULTRASOUND BREAST - RIGHT REASON FOR EXAM: Female, 35 years old. Pain in the right breast. TECHNIQUE: Axial and longitudinal images of the RIGHT breast were performed with a high resolution ultrasound transducer. # OF IMAGES: 38 COMPARISON: Comparison is made with prior mammogram done earlier today. FINDINGS: RIGHT Breast: The area of pain in the lower outer quadrant of the right breast was examined. No sonographic abnormalities seen. US/Breast Limited Unilateral IMPRESSION: No sonographic abnormality is seen. ASSESSMENT CATEGORY: BIRADS Category 1: Negative. A letter regarding these results will be sent to the patient by the facility within 30 days. Electronically Signed: Juan Daniel Brantley, at 15:45 EST , Service support ,
== END ==
PROVIDERS: PCP Family Medicine; Referring Provider Obstetrics & Gynecology; Visit Provider Obstetrics & Gynecology
DX: N64.4 Mastodynia (principal)
CPT/HCPCS: 76642; 77062; 77066; G0279

== ENCOUNTER → 2022-06-22 | Outpatient (CLI) | payer BC, SELFPAY ==
[2022-06-22 08:30] LABS: Absolute Lymphocyte Count 1.16 X10^3/uL (0.83-4.51); Absolute Neutrophil Count 12.5 X10^3/uL (2.0-7.7); Basophil# 0.02 X10^3/uL; Basophil% 0.1 % (0-1); Eosinophil# 0.03 X10^3/uL; Eosinophils% 0.2 % (0-5); Hematocrit 41.7 % (37-47); Hemoglobin 13.7 g/dL (12.0-15.0); Lymphocyte # 1.16 X10^3/ul (0.83-4.51); Mean Corp Hgb Conc 32.9 g/dL (32-36); Mean Corpuscular Hgb 29.3 pg (27.0-32.0); Mean Corpuscular Volume 89.1 fL (81-99); Mean Platelet Vol. 9.9 fl (6.2-12.0); Monocyte# 0.65 X10^3/uL; Monocyte% 4.5 % (0-10); NRBC Flagged by Analyzer 0 % (0-5); Neutrophil # 12.51 X10^3/uL (2.7-7.7); Neutrophil % 86.8 % (47-70); Platelet Count 242 K/mm3 (150-450); RBC Distribution Width CV 13.2 % (11.6-14.6); RBC Distribution Width SD 43.5 fl (35.1-43.9); Red Blood Count 4.68 M/mm3 (4.2-5.4); White Blood Count 14.4 K/mm3 (4.4-11.0)
[2022-06-22 09:07] LABS: AST(SGOT) 23 U/L (15-37); Alanine Aminotransfer ALT/SGPT 30 U/L (13-56); Alkaline Phosphatase 77 U/L (45-117); Anion Gap 9 (5-15); BUN 14 mg/dL (7-18); BUN/Creat Ratio 17.6 RATIO (10-20); Calcium,Total 9.2 mg/dL (8.5-10.1); Chloride 104 mmol/L (98-107); Cholesterol 195 mg/dL (200); EST Glomerular Filtration Rate 87 mL/min (>60); Est Glom Filt Rate - Afr Amer 105 mL/min (>60); Free T3 1.9 pg/mL (2.18-3.98); Glucose 107 mg/dL (74-106); High Density Lipoprotein 69 mg/dL; Potassium 4.1 mmol/L (3.5-5.1); Sodium Level 138 mmol/L (136-145); T4 Free Direct 0.87 ng/dL (0.76-1.46); Thyroid Stim Hormone (TSH) 1.45 uIU/mL (0.358-3.74); Triglycerides 128 mg/dL; Very Low Density Lipoprotein 26 mg/dL (5-40)
== END | disposition home or self-care (01) ==
PROVIDERS: PCP Family Medicine; Referring Provider Family Medicine; Visit Provider Family Medicine
DX: Z00.00 Encounter for general adult medical examination without abnormal findings (principal); R53.83 Other fatigue; Z51.81 Encounter for therapeutic drug level monitoring
CPT/HCPCS: 36415; 80053; 80061; 84439; 84443; 84481; 85025

== ENCOUNTER 2022-08-08 17:30 | Emergency (ER) | payer BC, SELFPAY ==
[2022-08-08 17:31] VITALS: BP 130/82; PULSE 75; RESP 14; TEMP 36.2; O2SAT 99; BMI 29.1
--- NOTE | 2022-08-08 18:32 | CT_ITS ---
INDICATION: fullness at temples EXAMINATION: CT FACIAL BONES - CT Maxillofacial W/O Contrast Injection TECHNIQUE: Helically acquired images were obtained of the facial bones. A radiation dose optimization technique was used for this scan. IV Contrast dosage and agent: None. COMPARISON: None. FINDINGS: SOFT TISSUES: No focal subcutaneous swelling. No discrete fluid collections. Mild bilateral cervical adenopathy, left more than right. VISUALIZED PARANASAL SINUSES: Mild mucosal thickening of the ethmoid sinuses. VISUALIZED MASTOID AIR CELLS: Clear. FACIAL BONES, MANDIBLE AND TMJs: No displaced facial bone fracture. No lytic or blastic abnormality. VISUALIZED DENTITION: No periodontal osseous erosion. ORBITAL CONTENTS: Both globes, extraocular muscles and retrobulbar fat appear unremarkable. CT/Sinus/Facial Bone IMPRESSION: Mild bilateral cervical adenopathy, left more than right. Mild ethmoid sinus disease. Electronically Signed: Shawn Clarke DO at 20:04 EDT Reading Location ID and State: [facility] / [place] Tel [phone], Service support ,
--- NOTE | 2022-08-08 18:46 | EX.ED.DYSGE1 ---
HPI History of Present Illness Chief Complaint: General Illness Informant: patient Narrative Narrative: Patient presents with a fullness or lump in both of her temples when she opens her jaw very widely. She does not have pain there. There is no bump when her jaws closed. No dental pain. No trouble swallowing. No headaches. No neurologic symptoms. She does have some nasal congestion and runny nose for about a week. But no facial pain. No discharge. She has had a very slight cough but is not short of breath and has no sputum production. [facility] that referred her over here to the emergency department to be seen. She just noticed the swelling today and states it has not been there in the past. Her verifies this. [facility] Medical History Acute pharyngitis, unspecified Bilateral headaches COVID-19 OCD (obsessive compulsive disorder) Temporal headache Home Medications sertraline 50 mg tablet 50 mg PO DAILY 30 days #30 tabs 10/09/19 [History Last Taken Unknown] Allergy/AdvReac Type Severity Reaction Status Date / Time No Known Allergies Allergy Verified 08/08/22 17:33 Family History Father COPD (chronic obstructive pulmonary disease) Hypertension Grandmother Cancer paternal lung cancer Surgical History History of delivery History of colposcopy History of D&C Social History Smoking Status: Never smoker second hand exposure: No alcohol intake: never substance use type: does not use what type of physical activity do you participate in: none seatbelt use: always do you feel safe at home: Yes additional social history: [facility] ED Constitutional Constitutional ED: Denies chills, fever(s), subjective or sweats Eyes Eyes: Denies blurry vision, change in vision or diplopia ENT ENT ED: Reports rhinorrhea; Denies ear pain or sore throat Cardiovascular Cardiovascular: Denies chest pain or palpitations Respiratory/Chest Respiratory/Chest: Reports cough; Denies dyspnea Gastrointestinal Gastrointestinal: Denies nausea or vomiting Musculoskeletal Musculoskeletal: Denies back pain, myalgias or neck pain Integumentary Denies rash Neurologic Neurologic: Denies headache(s), paresthesias or weakness Endocrine Endocrinology: Denies polydipsia or polyuria Hematologic/Lymphatic Hematologic/Lymphatic: Denies anemia Allergic/Immunologic Allergic/Immunologic ED: Denies urticaria EXAM Physical Exam Const Vital Signs: 08/08/22 17:31 Temperature 97.1 F L Temperature Source Temporal Pulse Rate 75 Respiratory Rate 14 Blood Pressure 130/82 H Blood Pressure Mean 98 Pulse Ox 99 Oxygen Delivery Method Room Air MDM MDM MDM Narrative Medical decision making narrative: My independent interpretation of the CT of her face did not show any marked abnormalities. There is a little bit of inflammation in the sinuses but mild. Final reading was mild bilateral cervical adenopathy left more than right and mild ethmoid sinus disease. But they saw no mass in the area where she has symptoms. Clinically, I think these are the masseter muscles becoming prominent with jaw motion. It may be related to her viral illness. I do not think she needs antibiotics. I do not think she needs blood work at this time. I explained that she should follow-up. If this continues or worsens they may need further imaging or biopsy. Hopefully this will resolve. Radiography Diagnostic Testing: Clinical Impression(s) from Imaging Studies Facial/Sinus 08/08/22 18:32 IMPRESSION: Mild bilateral cervical adenopathy, left more than right. Mild ethmoid sinus disease. Electronically Signed: Shawn Clarke DO at 20:04 EDT Reading Location ID and State: [address] [place] [address] Tel [phone], Service support , Discharge Plan Triage Chief Complaint: General Illness ED Provider: Gabriel Molina Dx/Rx/DC Orders Clinical Impression: URI (upper respiratory infection), Lymph node enlargement Instructions: ED URI, Viral, No Abx (Adult) Prescriptions: No Action sertraline 50 mg tablet 50 mg PO DAILY 30 Days Qty: 30 Primary Care Provider: Eneida Pat Referrals: Eneida Pat [[facility]] - 3-5 Days if not improving Disposition Disposition: Home, Self Care
[2022-08-08 21:01] VITALS: PULSE 72; RESP 18
== END 2022-08-08 21:03 | disposition home or self-care (01) ==
PROVIDERS: Emergency Provider Emergency Medicine; PCP Family Medicine; Visit Provider Emergency Medicine
DX: J06.9 Acute upper respiratory infection, unspecified (principal); R59.9 Enlarged lymph nodes, unspecified
CPT/HCPCS: 70486; 99282

== ENCOUNTER → 2022-09-23 | Outpatient (CLI) | payer BC, SELFPAY ==
--- NOTE | 2022-09-23 16:36 | RAD_ITS ---
INDICATION: SHOULDER PAIN EXAMINATION/TECHNIQUE: X-RAY - RIGHT XR Shoulder Min 2 Views 4 VIEWS COMPARISON: FINDINGS: SOFT TISSUES: No soft tissue swelling or gas. No radiopaque foreign body. BONES/0.65 cm catheter and distal clavicle and acromion consistent with grade 1 separation. Glenohumeral joint intact. RAD/Shoulder min 2 Views IMPRESSION: Grade 1 AC separation. Electronically Signed: Marcelo Piedra MD, AV at 23:26 EDT ,
== END | disposition home or self-care (01) ==
LOC: RAD 16:33
PROVIDERS: PCP Family Medicine; Referring Provider Family Medicine; Visit Provider Family Medicine
DX: S46.019A Strain of muscle(s) and tendon(s) of the rotator cuff of unspecified shoulder, initial encounter (principal); M25.511 Pain in right shoulder; X58.XXXA Exposure to other specified factors, initial encounter
CPT/HCPCS: 73030

== ENCOUNTER 2022-09-27 07:00 | Outpatient (RCR) | payer BC, SELFPAY ==
--- NOTE | 2022-08-23 08:23 | HP.PTEVAL ---
Patient's Visit Information KOURTNEY CUEVAS is a 37 year old F referred to Physical Therapy by Dr. Eneida Pat DO with a diagnosis of R shoulder pain, RC strain, bicep tendonitis. Date of Evaluation: 08/23/22 Physical Therapist: PAPA Gil[place] - Visit Plan Frequency: 2x /Week Duration: 6 Weeks Plan: 2X/ week for 6 weeks for scapular retraction, scapular strengthening, postural exercises, AAROM of the R shoulder, RC strengthening with HEP. May use US or modalities to the R shoulder if needed. Pt WILL NEED HEP early in her treatment. Pt sits at a desk all day and will work on avoiding horizontal adduction and bad posture during her day. HEP: scapular retraction, supine wand flexion, standing wand abduction, green mid rows - Subjective She thinks that it stems from walking the dog and he yanked really hard. The next morning she had pain middle of the arm. Saw Dr and got an injection in May and then it ran out and then she got another injection and it does feel like 80% better. Putting on a back pack, abduction, coming down from walking up the wall hurts and cross body exercises hurt. She is L handed. She can not lay on her R side and it will wake her up if she does lay on that side. Turning the car wheel hurts. Reaching into the back seat of the car. She has no N&T and no neck pain. X-ray is ordered but not completed. - Pain R shoulder pain Pain Intensity (Out of 10): 0 Pain Intensity Range: 4 Comment: with certain movements - Objective L handed: R 65# and L 55#. Shoulder AROM: R flexion 115 degrees, ABD 105 degrees, IR T12, ER 64. L shoulder flex and abd full ROM, TR T8, ER 54. Shoulder MMT: R Flex 9.3, ABD 5.3, ER 8.8, IR 10.7. L Flex 11.2, ABD 10.7, ER 12.3, IR 9.8. + HK on the R for pain. Slight pain with empty can on the R but not really weakness. Palpation: tender under the acromion on the R side for pain. - Balance/Special Test Scores Quick DASH Score: 29.5450 - Goals Goal 1:: I HEP Goal Time Frame: 6-8 Weeks Goal 2:: Increase R shoulder AROM (at the time of the eval: R flexion 115 degrees, ABD 105 degrees, IR T12, ER 64) Goal Time Frame: 6-8 Weeks Goal 3:: Increase R shoulder strength (at the time of the eval: R Flex 9.3, ABD 5.3, ER 8.8, IR 10.7) Goal Time Frame: 6-8 Weeks Goal 4:: Be able to put on her back pack without pain Goal Time Frame: 6-8 Weeks Goal 5:: Sit with upright posture during treatment sessions and correct posture if not correct on command Goal Time Frame: 6-8 Weeks - Rehabilitation Potential Rehabilitation Potential: Good - Anticipated Interventions Patient/Client Instruction: Educate patient on: Condition, Plan of Care For the Purpose of:: To decrease pain, To increase ROM, To improve nutrient delivery to tissue, To improve muscle performance and motor function, To improve ability to perform ADL's, To increase tolerance to activity/condition/position, To improve performance and independence with ADL's, To decrease level of supervision to perform tasks, To improve ability of physical actions for home/community/work/leisure, To improve health of tissue, To decrease soft tissue restriction, To increase flexibility/ROM Therapeutic Exercise to Include: Strength training, Postural training, Flexibilty training, Passive ROM, Active ROM, Scapular Strength/Stabilization For the Purpose of:: To decrease pain, To increase ROM, To improve nutrient delivery to tissue, To improve muscle performance and motor function, To improve ability to perform ADL's, To increase tolerance to activity/condition/position, To improve performance and independence with ADL's, To decrease level of supervision to perform tasks, To improve health of tissue, To decrease soft tissue restriction, To increase flexibility/ROM Manual Therapy Techniques to Include: Mobilization, Passive ROM, Soft tissue mobilization For the Purpose of:: To decrease pain, To decrease swelling/inflammation, To increase ROM, To improve nutrient delivery to tissue IF ES: Yes Cryotherapy (ice pack, ice massage): Yes Thermo therapy (hot pack): Yes Ultrasound (thermal/non thermal): Yes For the Purpose of:: To decrease pain, To increase ROM, To improve nutrient delivery to tissue Thank you for the opportunity to evaluate your patient. For Medicare and Medicare HMO plans, please review the plan of care and approve it. It will need to be FAXED BACK to us at [phone] for Medicare purposes. For Medicare only, by signing this I certify the plan of care. Please let me know if there are questions or concerns regarding this plan of care. Physician Signature: Date:
--- NOTE | 2022-09-27 07:21 | HP.PTDCSUM ---
It has been my pleasure to treat KOURTNEY CUEVAS referred by Dr. Eneida Pat DO, with the diagnosis of R shoulder pain, RC strain, bicep tendonitis for a total of 10 visit(s). Discharge Date: 09/27/22 Please see the following information for a summary of their discharge status. Subjective: Pt reports that she is not better at all. She had an x-ray last week that showed some seperation and having an MRI soon. She does have pain with certain exercises including ER. Other ones do not bother her at all. She reports that her posture is better. R shoulder pain Pain Intensity (Out of 10): 0 % Improvement: 0 Objective/Function: R flexion 124 degrees, ABD 105 degrees, IR T12, ER 64. R Flex 9.3, ABD 6.6, ER 7.1, IR 7.2 Goal 1:: I HEP Goal Progress: Goal Met Goal 2:: Increase R shoulder AROM (at the time of the eval: R flexion 115 degrees, ABD 105 degrees, IR T12, ER 64) Goal Progress: Not Progressing Goal 3:: Increase R shoulder strength (at the time of the eval: R Flex 9.3, ABD 5.3, ER 8.8, IR 10.7) Goal Progress: Not Progressing Goal 4:: Be able to put on her back pack without pain Goal Progress: Not Progressing Goal 5:: Sit with upright posture during treatment sessions and correct posture if not correct on command Goal Progress: Goal Met Plan: 2X/ week for 6 weeks for scapular retraction, scapular strengthening, postural exercises, AAROM of the R shoulder, RC strengthening with HEP. May use US or modalities to the R shoulder if needed. Pt WILL NEED HEP early in her treatment. Pt sits at a desk all day and will work on avoiding horizontal adduction and bad posture during her day. Discharge Comments: DC PT for further diagnostic testing If there are questions or concerns regarding this patient's physical therapy, please feel free to call me at [phone]. Thank you for the referral of this patient. Sincerely, Roslyn Anderson, MPT Balance/Gait/Functional tests - Balance/Special Test Scores Quick DASH Score: 36.3625
== END 2022-09-27 19:00 | disposition home or self-care (01) ==
LOC: PT 07:00
PROVIDERS: PCP Family Medicine; Referring Provider Family Medicine; Visit Provider Family Medicine
DX: S46.019A Strain of muscle(s) and tendon(s) of the rotator cuff of unspecified shoulder, initial encounter (principal); M25.511 Pain in right shoulder
CPT/HCPCS: 97110; 97161; 97530

== ENCOUNTER → 2022-10-06 | Outpatient (CLI) | payer BC, SELFPAY ==
[2022-10-06 14:28] LABS: Absolute Lymphocyte Count 2.31 X10^3/uL (0.83-4.51); Absolute Neutrophil Count 5.5 X10^3/uL (2.0-7.7); Basophil# 0.04 X10^3/uL; Basophil% 0.5 % (0-1); Eosinophil# 0.09 X10^3/uL; Eosinophils% 1.1 % (0-5); Hematocrit 40.9 % (37-47); Hemoglobin 13.1 g/dL (12.0-15.0); Lymphocyte # 2.31 X10^3/ul (0.83-4.51); Lymphocyte % 27.6 % (19-41); Mean Corpuscular Hgb 29.2 pg (27.0-32.0); Mean Corpuscular Volume 91.3 fL (81-99); Mean Platelet Vol. 9.6 fl (6.2-12.0); Monocyte# 0.42 X10^3/uL; NRBC Flagged by Analyzer 0 % (0-5); Neutrophil # 5.47 X10^3/uL (2.7-7.7); Neutrophil % 65.3 % (47-70); Platelet Count 268 K/mm3 (150-450); RBC Distribution Width CV 12.9 % (11.6-14.6); RBC Distribution Width SD 43.6 fl (35.1-43.9); Red Blood Count 4.48 M/mm3 (4.2-5.4); White Blood Count 8.4 K/mm3 (4.4-11.0)
[2022-10-06 15:18] LABS: Free T3 2.3 pg/mL (2.18-3.98); T4 Free Direct 0.87 ng/dL (0.76-1.46); Thyroid Stim Hormone (TSH) 1.72 uIU/mL (0.358-3.74)
[2022-10-10 16:09] LABS: Thyroglobulin Antibody < 1.0 IU/mL (0.0-0.9); Thyroid Peroxidase AB 10 IU/mL (0-34)
[2022-10-14 12:10] LABS: HPV APTIMA, High Risk Negative (Negative)
== END | disposition home or self-care (01) ==
PROVIDERS: PCP Family Medicine; Visit Provider Obstetrics & Gynecology
DX: Z12.4 Encounter for screening for malignant neoplasm of cervix (principal); N93.9 Abnormal uterine and vaginal bleeding, unspecified; Z13.29 Encounter for screening for other suspected endocrine disorder
CPT/HCPCS: 36415; 84439; 84443; 84481; 85025; 86376; 86800; 87624; 88175; G0145

== ENCOUNTER → 2022-10-12 | Outpatient (CLI) | payer BC, SELFPAY ==
--- NOTE | 2022-10-12 07:49 | US_ITS ---
STUDY: ULTRASOUND OF THE FEMALE PELVIS - COMPLETE REASON FOR EXAM: Female, 37 years old. AUB. LMP: September 23, 2022. TECHNIQUE: Transabdominal and Transvaginal TECHNICAL QUALITY: Adequate. COMPARISON: None. FINDINGS: The uterus is anteverted and retroflexed and is in a midline position. The uterus measures 9.2 x 5.6 x 4.7 cm. Normal uterine cervix. The endometrium measures 8 mm in thickness, and is hyperechoic. There is no demonstrated endometrial mass. There is no demonstrated myometrial mass. I.U.D. - The patient does not have an I.U.D. The right ovary is visualized. The right ovary measures 5.1 x 2.4 x 2.0 cm. There are multiple follicles of the right ovary without a dominant 2.6 x 1.6 x 2.8 cm complex cyst. There is a second cystic structure measuring 1.4 x 1.3 x 1.3 cm which may lie within the ovary or adjacent to the ovary. This appears to be a simple cyst. There is normal arterial and normal venous vascularity. The left ovary is visualized. The left ovary measures 2.6 x 2.4 x 3.5 cm. There is no left ovarian cyst or ovarian mass. There is no visualized left adnexal mass or complex lesion. There is normal arterial and normal venous vascularity. There is no fluid in the cul-de-sac. The visualized urinary bladder is grossly normal. Prevoid volume is 572 mL. Polycystic ovary disease: No. US/Pelvic w/ Transvaginal IMPRESSION: 1. Normal uterus and left ovary. 2. Multiple cysts in the region of the right ovary. ACR White Paper guidelines (Hill, et. al. Radiology 2010;256(3):943-954) suggest no follow-up is necessary. Electronically Signed: Jesse Bryan DO at 18:24 EDT ,
== END | disposition home or self-care (01) ==
PROVIDERS: PCP Family Medicine; Referring Provider Obstetrics & Gynecology; Visit Provider Obstetrics & Gynecology
DX: N93.9 Abnormal uterine and vaginal bleeding, unspecified (principal)
CPT/HCPCS: 76830; 76856

== ENCOUNTER → 2022-10-19 | Outpatient (CLI) | payer BC, SELFPAY ==
--- NOTE | 2022-10-19 07:00 | MRI_ITS ---
EXAM: MR RIGHT UPPER EXTREMITY WITHOUT INTRAVENOUS CONTRAST, SHOULDER CLINICAL INDICATION: RIGHT shoulder pain with certain movements s/p jerking injury x 6 months TECHNIQUE: Multiplanar and multisequence MR images of the right shoulder without intravenous contrast. COMPARISON: No relevant prior studies available. FINDINGS: TENDONS: SUPRASPINATUS: Moderate grade intrasubstance tear involving the middle to posterior supraspinatus tendon at the level of the tendon footprint. This type of tear is likely be hidden or concealed at the time of arthroscopy. No full-thickness rotator cuff tear identified. INFRASPINATUS: Unremarkable. Intact. SUBSCAPULARIS: Focal signal alteration involving the superior fibers of the distal subscapularis tendon suggesting a low to moderate grade intrasubstance tear. TERES MINOR: Unremarkable. Intact. BICEPS BRACHII, LONG HEAD: Unremarkable. The extra-articular biceps tendon is in the bicipital groove. The intra-articular biceps tendon is normal. LIGAMENTS: GLENOHUMERAL: Unremarkable. Intact. MUSCLES: Unremarkable. No rotator cuff muscle atrophy. FLUID: Small amount of fluid in the subacromial subdeltoid bursa can be seen with bursitis. No joint effusion. CARTILAGE: Unremarkable. Articular cartilage intact. GLENOID LABRUM: Unremarkable. Intact, limited evaluation on non-arthrographic exam. BONES/JOINTS: Type I acromion with flat undersurface. No subacromial enthesophyte or os acromiale. No fracture. No abnormal bone marrow signal. OTHER SOFT TISSUES: Unremarkable. No rotator interval edema. MRI/Upper Ext Joint Only(Routine) IMPRESSION: 1. Moderate grade intrasubstance tear involving the middle to posterior supraspinatus tendon at the level of the tendon footprint. This type of tear is likely be hidden or concealed at the time of arthroscopy. No full-thickness rotator cuff tear identified. 2. Focal signal alteration involving the superior fibers of the distal subscapularis tendon suggesting a low to moderate grade intrasubstance tear. Again, this type of tear is likely be hidden or concealed at the time of arthroscopy. 3. Small amount of fluid in the subacromial subdeltoid bursa posteriorly can be seen with bursitis. Electronically Signed: Alex Colón MD at 21:52 EDT ,
== END | disposition home or self-care (01) ==
LOC: MRI 15:43
PROVIDERS: PCP Family Medicine; Referring Provider Family Medicine; Visit Provider Family Medicine
DX: M25.511 Pain in right shoulder (principal)
CPT/HCPCS: 73221

== ENCOUNTER → 2023-10-13 | Outpatient (CLI) | payer OTHER, SELFPAY ==
[2023-10-13 08:53] LABS: Absolute Lymphocyte Count 1.76 X10^3/uL (0.83-4.51); Absolute Neutrophil Count 5.2 X10^3/uL (2.0-7.7); Basophil# 0.05 X10^3/uL; Basophil% 0.7 % (0-1); Eosinophil# 0.09 X10^3/uL; Eosinophils% 1.2 % (0-5); Hematocrit 41.8 % (37-47); Hemoglobin 13.4 g/dL (12.0-15.0); Lymphocyte # 1.76 X10^3/ul (0.83-4.51); Lymphocyte % 23.1 % (19-41); Mean Corp Hgb Conc 32.1 g/dL (32-36); Mean Corpuscular Hgb 28.3 pg (27.0-32.0); Mean Corpuscular Volume 88.2 fL (81-99); Mean Platelet Vol. 9.1 fl (6.2-12.0); Monocyte# 0.47 X10^3/uL; Monocyte% 6.2 % (0-10); NRBC Flagged by Analyzer 0 % (0-5); Neutrophil # 5.22 X10^3/uL (2.7-7.7); Neutrophil % 68.4 % (47-70); Platelet Count 225 K/mm3 (150-450); RBC Distribution Width CV 12.9 % (11.6-14.6); RBC Distribution Width SD 41.4 fl (35.1-43.9); Red Blood Count 4.74 M/mm3 (4.2-5.4); White Blood Count 7.6 K/mm3 (4.4-11.0)
[2023-10-13 09:32] LABS: Vitamin D,25 Hydroxy 26.6 ng/mL
[2023-10-13 09:40] LABS: ALB/GLOB Ratio 1.1 RATIO (0.9-2.4); AST(SGOT) 28 U/L (15-37); Alanine Aminotransfer ALT/SGPT 44 U/L (13-56); Alkaline Phosphatase 69 U/L (45-117); Anion Gap 2 (5-15); BUN 14 mg/dL (7-18); BUN/Creat Ratio 15.8 RATIO (10-20); Calcium,Total 9.3 mg/dL (8.5-10.1); Chloride 106 mmol/L (98-107); Cholesterol 235 mg/dL (200); Creatinine, Serum 0.89 mg/dL (0.55-1.02); EST Glomerular Filtration Rate 76 mL/min (>60); Est Glom Filt Rate - Afr Amer 92 mL/min (>60); Globulin 3.8 g/dL (2.2-4.2); Glucose 97 mg/dL (74-106); High Density Lipoprotein 53 mg/dL; Protein, Total 7.8 g/dL (6.4-8.2); Sodium Level 136 mmol/L (136-145); Thyroid Stim Hormone (TSH) 1.49 uIU/mL (0.358-3.74); Triglycerides 192 mg/dL; Very Low Density Lipoprotein 38 mg/dL (5-40)
[2023-10-13 09:51] LABS: Hemoglobin A1c 5.2 % (3.8-5.6)
== END | disposition home or self-care (01) ==
LOC: LAB 08:22
PROVIDERS: PCP Family Medicine; Visit Provider Obstetrics & Gynecology
DX: Z13.1 Encounter for screening for diabetes mellitus (principal); Z13.220 Encounter for screening for lipoid disorders; Z13.29 Encounter for screening for other suspected endocrine disorder; Z13.21 Encounter for screening for nutritional disorder; Z13.0 Encounter for screening for diseases of the blood and blood-forming organs and certain disorders involving the immune mechanism
CPT/HCPCS: 36415; 80053; 80061; 82306; 83036; 84443; 85025

== ENCOUNTER → 2023-10-18 | Outpatient (CLI) | payer OTHER, SELFPAY ==
--- NOTE | 2023-10-18 08:46 | BI_ITS ---
MAMMOGRAPHY - BILATERAL DIAGNOSTIC REASON FOR EXAM: Female, 38 years old. breast pain PERTINENT HISTORY: Non-contributory. TECHNIQUE: Digital examination. Mediolateral oblique (MLO) and craniocaudad (CC) views of both breasts were obtained. CAD: CAD was performed on this study. COMPARISON: 06/08/2020 FINDINGS: Breast Composition: There are scattered areas of fibroglandular density. There are no dominant masses or suspicious calcifications. No other significant abnormalities are identified. BI/DIAG MAMM W/CAD, BILAT IMPRESSION: Stable bilateral diagnostic mammogram. ASSESSMENT CATEGORY: BIRADS Category 1: Negative. A letter regarding these results will be sent to the patient by the facility within 30 days. FOLLOW UP RECOMMENDATION: Yearly follow up mammogram recommended. (A) Approximately 10% of breast cancers are not detected by mammography. A normal mammogram should not delay biopsy of a clinically suspicious abnormality. Electronically Signed: Rock Mehta MD at 9:33 EDT ,
== END | disposition home or self-care (01) ==
PROVIDERS: PCP Family Medicine; Referring Provider Obstetrics & Gynecology; Visit Provider Obstetrics & Gynecology
DX: N64.4 Mastodynia (principal)
CPT/HCPCS: 77062; 77066; G0279

== ENCOUNTER → 2024-10-25 | Outpatient (CLI) | payer OTHER, SELFPAY ==
[2024-10-25 08:33] LABS: Absolute Lymphocyte Count 2.22 X10^3/uL (0.83-4.51); Absolute Neutrophil Count 5.7 X10^3/uL (2.0-7.7); Basophil# 0.05 X10^3/uL; Basophil% 0.6 % (0-1); Eosinophils% 2.3 % (0-5); Hematocrit 40.6 % (37-47); Hemoglobin 13.4 g/dL (12.0-15.0); Lymphocyte # 2.22 X10^3/ul (0.83-4.51); Lymphocyte % 25.3 % (19-41); Mean Corpuscular Hgb 28.9 pg (27.0-32.0); Mean Corpuscular Volume 87.5 fL (81-99); Mean Platelet Vol. 9.7 fl (6.2-12.0); Monocyte# 0.58 X10^3/uL; Monocyte% 6.6 % (0-10); NRBC Flagged by Analyzer 0 % (0-5); Neutrophil # 5.71 X10^3/uL (2.7-7.7); Neutrophil % 64.9 % (47-70); Platelet Count 250 K/mm3 (150-450); RBC Distribution Width SD 41.4 fl (35.1-43.9); Red Blood Count 4.64 M/mm3 (4.2-5.4); White Blood Count 8.8 K/mm3 (4.4-11.0)
[2024-10-25 08:40] LABS: Hemoglobin A1c 5.5 % (<=5.6)
[2024-10-25 09:22] LABS: ALB/GLOB Ratio 1.6 RATIO (0.9-2.4); AST(SGOT) 32 U/L (<=31); Alanine Aminotransfer ALT/SGPT 34 U/L (<=34); Albumin, Serum 4.4 g/dL (3.5-5.0); Alkaline Phosphatase 72 U/L (35-104); Anion Gap 11 (5-15); BUN 15 mg/dL (4-19); BUN/Creat Ratio 17.3 RATIO (10-20); Calcium,Total 9.4 mg/dL (7.6-11.0); Chloride 100 mmol/L (98-108); Cholesterol 222 mg/dL (<=200); Creatinine, Serum 0.86 mg/dL (0.70-1.20); EST Glomerular Filtration Rate 89 (>60); Globulin 2.7 g/dL (2.2-4.2); Glucose 95 mg/dL (70-99); High Density Lipoprotein 51 mg/dL; Low Density Lipoprotein Calc. 127 mg/dL; Potassium 4.1 mmol/L (3.3-5.1); Protein, Total 7.1 g/dL (5.9-8.4); Sodium Level 135 mmol/L (133-145); Total Bilirubin 0.34 mg/dL (0.00-1.30); Triglycerides 218 mg/dL; Very Low Density Lipoprotein 44 mg/dL (5-40); Vitamin D,25 Hydroxy 23.1 ng/mL (30-100); cholesterol:hdl ratio screen 4.34
== END | disposition home or self-care (01) ==
PROVIDERS: PCP Family Medicine; Referring Provider Obstetrics & Gynecology; Visit Provider Obstetrics & Gynecology
DX: Z00.00 Encounter for general adult medical examination without abnormal findings (principal); Z80.0 Family history of malignant neoplasm of digestive organs; Z13.29 Encounter for screening for other suspected endocrine disorder
CPT/HCPCS: 36415; 80053; 80061; 82306; 83036; 84443; 85025